=== PATIENT | male | born 1985 | race Caucasian/White ===

== ENCOUNTER → 2020-09-14 | Outpatient (CLI) | payer OTHER | LOC: LAB 07:50 | PROVIDERS: ATTEND Orthopaedic Surgery Sports Medicine | DX: Z01.812 Encounter for preprocedural laboratory examination (principal); Z20.828 Contact with and (suspected) exposure to other viral communicable diseases ==

== ENCOUNTER 2020-09-19 10:31 | Day surgery (SDC) | payer OTHER ==
[~2020-09-19] VITALS: Ht 180.3 cm; Wt 68.9 kg
[2020-09-19 11:54] VITALS: BP 114/55
[2020-09-19 15:46] VITALS: BP 114/55
--- NOTE | 2020-09-20 10:37 | O ---
[address] [address] OPERATIVE REPORT Name: RAJAN MAIN Room #: DEP [facility].#: [id number] Admission: 09/19/20 Attend Phys: Antony Lynch MD Discharge: 09/19/20 Date of : 87 Report #: [id number] THIS REPORT FOR: cc: Sathya Appiah,Antony Burnham MD ~ CC: Antony Lucia DATE OF SERVICE: 09/19/2020 SERVICE: Orthopedics. FACILITY: [facility]. SURGEON: Antony Lynch MD DIRECTOR MARKETING COMMUNICATIONS: Sofia Whyte NP PREOPERATIVE DIAGNOSES: 1. Right hip pain. 2. Right hip femoroacetabular impingement. 3. Right hip labral tear. POSTOPERATIVE DIAGNOSES: 1. Right hip pain. 2. Right hip femoroacetabular impingement. 3. Right hip labral tear. 4. Right hip acetabular chondromalacia, flap tear. PROCEDURES: 1. Right hip arthroscopic labral repair (CPT 36721). 2. Right hip arthroscopic Cam osteochondroplasty (CPT 49369). 3. Right hip arthroscopic subspine decompression (CPT 00646). COMPLICATIONS: None. DRAINS: None. SPECIMENS: None. ANESTHESIA: General with regional. FINDINGS: 1. A labral tear, treated with [place] CinchLock suture anchor x 2. 2. Articular cartilage flap tear approximately 50% thickness, treated with [address] [address] OPERATIVE REPORT Name: RAJAN MAIN Room #: DEP [facility].#: [id number] Admission: 09/19/20 Attend Phys: Antony Lynch MD Discharge: 09/19/20 Date of : 87 Report #: [id number] chondroplasty. 3. 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 4. Additional source of impingement requiring additional work to dissect and expose the anterior inferior iliac subspine region thereby requiring the subspine decompression with the bur. HISTORY: The patient is a 35-year-old gentleman with worsening persistent right hip pain as affecting ADLs including his ability to work. He has not been able to work for several months because of the hip pain. He has tried extensive conservative measures including rest, activity modifications, physical therapy, oral medicines, intraarticular injection, which provided positive pain relief, but only temporarily and therefore he was interested in surgical treatment. Preoperative imaging was consistent with a combined-type femoroacetabular impingement with an alpha angle of 78 degrees and a prominent anterior inferior iliac spine causing subspine impingement. He had an MRI, which showed a labral tear as well. Risks, benefits, alternatives, and indication of surgery discussed with him in detail. He gave full informed consent and wished to move forward with surgery. X-rays also showed Ton[place] grade of 0 with no arthritis and closed growth plates. PROCEDURE IN DETAIL: After right lower extremity was correctly identified in the preoperative holding area as the operative extremity, the patient underwent regional nerve block. He was then taken to the operating room where general anesthesia was induced without complication. He was padded appropriately. Prophylactic antibiotics were administered at appropriate time. He was transferred off the operating table. Right hip femoral head and neck junction was mapped out under fluoroscopy. He had a very large Cam deformity extending from the 0-degree position all the way to the 90-degree position with maximum alpha angle of nearly 80 degrees. Right hip was prepped and draped in standard sterile fashion. Time-out procedure was performed. Traction was applied, standard anterolateral viewing portal was established from anterior medial working portal and diagnostic arthroscopy revealed the above findings. The femoral head articular cartilage was intact. The majority of the acetabular articular cartilage was intact, but there was a flap tear at the chondral labral junction anterolaterally that was 50% thickness and ultimately was treated with a chondroplasty. There was synovitis present as well as capsular erythema. Both of these will be the indication for continuous passive motion machine usage postoperatively as these can be reasons for scarring and stiffness, which will be reasons for reoperation in this patient population and CPM will hopefully reduce this risk. Capsule was reflected off the dorsal side of the labrum allowing exposure of the acetabular rim. The bur was used to gently abrade the acetabular rim to create a fresh bleeding surface for labral refixation. The subspine region was then exposed. Cautery and shaver used to dissect the capsule off of the lower portion of the anterior inferior iliac spine and then [address] [address] OPERATIVE REPORT Name: ETELVINARAJAN IESHA Room #: DEP [facility] Sangeetha#: [id number] Admission: 09/19/20 Attend Phys: Antony Lynch MD Discharge: 09/19/20 Date of : 87 Report #: [id number] the bur was used after the dissection completed to perform a subspine decompression. We confirmed on x-ray as well as arthroscopically presence of an adequate resection and photographs were taken of this. This is additional work from the typical rim acetabuloplasty as this is an extraarticular source of the acetabular sided impingement and is not the rim impingement that is addressed in preparation with labral repair. The labral refixation was then performed with a total of 2 [place] CinchLock suture anchors. The first one was placed, but it was on the edge of the bone with some soft tissue purchase and was not secure, so we removed it and then placed the second one more laterally and a third one was placed more lateral to that. So a total of 2 anchors total were utilized as was consistent with the preoperative plan and the initial intraoperative assessment. Good apposition of the labrum was achieved on the acetabular rim with compression and then it was stable to probing. The traction was let down, the hip was flexed up. Attention turned towards peripheral compartment. A transverse capsulotomy was extended down the neck in a T fashion to visualize the entire Cam deformity and then the bur was used to perform a Cam osteoplasty in typical fashion. We removed the instruments, brought C-arm in, assessed the resection. There was some additional bone over the top lateral shoulder that needed to be resected, so the instruments were placed back into the hip and then completed the Cam osteoplasty. The instruments were removed, C-arm was brought in and again assessed the resection. At this point, I was happy with the resection. Final x-rays were taken. Instruments were then placed back into the hip. The T-shaped capsulotomy was closed with a total of three #2 Vicryl sutures and the instruments were then removed. Portal sites were closed. Sterile dressing was applied. The patient was awakened from anesthesia and taken to recovery room in stable condition. No complications. All counts were recorded as correct. <ELECTRONICALLY SIGNED> By: Antony Lynch MD 09/20/20 [id number] Antony Lynch MD /tonya
== END 2020-09-19 16:35 | disposition home or self-care (01) ==
LOC: OR 10:31 → TBA 10:38 → OR 12:08
PROVIDERS: ATTEND Orthopaedic Surgery Sports Medicine
DX: M25.551 Pain in right hip (principal); M25.851 Other specified joint disorders, right hip; S73.101A Unspecified sprain of right hip, initial encounter; M94.251 Chondromalacia, right hip; F41.9 Anxiety disorder, unspecified; K21.9 Gastro-esophageal reflux disease without esophagitis; Z98.890 Other specified postprocedural states; Z79.899 Other long term (current) drug therapy; X58.XXXA Exposure to other specified factors, initial encounter; Y93.89 Activity, other specified; Y92.89 Other specified places as the place of occurrence of the external cause; Y99.8 Other external cause status
CPT/HCPCS: 50010; 50101; 50386; 51320; 51538; 52001; 52282; 52304; 56524; 56527; 57092; 57103; 58273; 58274; 62110; 62900; 64039